=== PATIENT | male | born 1940 | race Caucasian/White ===

== ENCOUNTER 2017-01-15 19:02 | Inpatient (IN) | payer MEDICARE, OTHER ==
--- NOTE | ~2017-01-15 | CN ---
Consultation Report [address] [place]. [address] NAME: SORIN SUMNER : 42 STATUS : ADM IN [facility]#: [id number] AGE: 76 ADM/REG DATE : 01/16/17 MR#: [id number] REPORT SERV DATE: 01/17/17 DICTATED BY: KARY PIERCE III DATE: 01/16/17 REPORT STATUS : Draft TRANSCRIBED BY: MODL DATE: 01/16/17 CONSULTATION REPORT DATE OF CONSULTATION: 01/16/2017 REASON FOR CONSULT: 1. Acute abdominal pain. 2. Biliary pancreatitis. 3. Recommendation regarding surgical management. HISTORY OF PRESENT ILLNESS: I am asked to see this 76-year-old male in the hospital today for the above reasons. The patient complains of severe epigastric abdominal pain. He states this began about one week ago. He describes pain which lasted for about one week. The pain is primarily in the epigastric area. The pain became progressively worse. The patient presented to the emergency room and was found to have evidence for biliary pancreatitis. Today, the patient states that the pain has essentially resolved. He is anxious to go home. The patient has no prior history of similar symptoms. The patient states that the pain was aggravated by food. He had some nausea associated with this pain. The patient presented to the emergency room and was found to have evidence for pancreatitis with gallstones. The patient states his pain is now relieved and he does not wish to have any surgical intervention. PAST MEDICAL HISTORY: 1. Hypertension. 2. Coronary artery disease. 3. History of coronary artery bypass graft. 4. History of diastolic heart failure. 5. History of chronic atrial fibrillation, requiring Xarelto. 6. Hyperlipidemia. 7. Obesity. 8. History of tobacco abuse. 9. History of diabetes mellitus. SOCIAL HISTORY: The patient has a history of chronic tobacco abuse, for about 60 pack years. The patient is a purcell. He denies any history of alcohol use. ALLERGIES: NONE. MEDICATIONS: Xarelto, aspirin, Glucophage, Neurontin, Inderal, Crestor, Antivert, Ativan, Pepcid, Ultram, ProAir, Prinivil, Amaryl, hydrochlorothiazide, Victoza, Tresiba, and Consultation Report [address] [place]. [address] NAME: SORIN SUMNER : 42 STATUS : ADM IN PAT#: [id number] AGE: 76 ADM/REG DATE : 01/16/17 MR#: [id number] REPORT SERV DATE: 01/17/17 DICTATED BY: KARY PIERCE III DATE: 01/16/17 REPORT STATUS : Draft TRANSCRIBED BY: MODSimon DATE: 01/16/17 aspirin. REVIEW OF SYSTEMS: The patient's 14-point review of systems is otherwise unremarkable. FAMILY HISTORY: Unremarkable. PHYSICAL EXAMINATION: GENERAL: This is a large obese male, in no acute distress. He is alert and oriented x3. VITAL SIGNS: Blood pressure 140/68, temperature 97.8, and pulse 65. HEENT: Unremarkable. Cranial nerves II through XII are normal. LUNGS: Clear. CARDIAC: Normal. ABDOMEN: His abdomen is obese, but soft and nontender. EXTREMITIES: Normal. LABORATORY DATA: CT scan of the abdomen and pelvis, which I reviewed which was performed on admission showed inflammatory changes around the pancreas consistent with pancreatitis. There is noted to be a small fat containing umbilical hernia. There was noted to be gallstones in the gallbladder with no evidence for cholecystitis. Electrolytes were normal. Glucose on admission was elevated at 215. Lipase on admission was 1323, has decreased to 550 today. White blood cell count 15 today. Hematocrit is 40. ASSESSMENT: 1. This is a 76-year-old male with acute biliary pancreatitis, which is resolving. 2. Cholelithiasis and probable symptomatic cholelithiasis and chronic cholecystitis. 3. Probable chronic obstructive pulmonary disease secondary to tobacco abuse. 4. Tobacco abuse. 5. Coronary artery disease. 6. History of coronary artery bypass graft. 7. Hyperlipidemia. 8. Diabetes mellitus. 9. Hypertension. 10.Atrial fibrillation, requiring Xarelto. PLAN: Discussed this with the patient. The patient has biliary pancreatitis, which is improving with medical management. I have explained to the patient that I would strongly recommend laparoscopic cholecystectomy, possible laparotomy, on this admission. Surgery would require his Xarelto to be held two days prior to surgery, and we could therefore schedule the surgery for Saturday of this week for him. The patient refused surgery. I have explained to the patient that without surgery he will likely have recurrent episodes of biliary pancreatitis. He also has a risk for complications including cholecystitis, or choledocholithiasis with obstructive jaundice or cholangitis, any of which could be life- threatening. For this reason, I explained the patient that standard of care is for Consultation Report [address] [place]. [address] NAME: SORIN SUMNER : 42 STATUS : ADM IN [facility]#: [id number] AGE: 76 ADM/REG DATE : 01/16/17 MR#: [id number] REPORT SERV DATE: 01/17/17 DICTATED BY: KARY PIERCE III DATE: 01/16/17 REPORT STATUS : Draft TRANSCRIBED BY: HEDY DATE: 01/16/17 cholecystectomy to be performed on this admission. The patient is adamant that he does not wish to have surgery at this time. I have explained to him again the complications which could occur without surgery, including recurrent episodes of biliary pancreatitis, cholecystitis, obstructive jaundice with cholangitis, any of which could be life- threatening. The patient understands my recommendations, but declines at this time. He indicates that he wishes to go home and will consider this. I have told the patient that if he changes his mind and wishes to have surgery, he may call and we will schedule it to be done for him. I have explained to him that his Xarelto would again need to be held for at least two days prior to surgery. Regarding the surgery, the procedure, risks, benefits, and alternatives were explained to the patient. His questions were answered. He understands, but indicates that he does not wish to have surgery at this time or on this admission. Again, the patient is asked to call should he wished to schedule surgery electively. Otherwise, I will see him back as needed. PEMA/HEDY Kary Pierce III, M.D. / [id number] CC: Sorin Marin Jr, MD Raymond Bedgood, M.D.
--- NOTE | ~2017-01-15 | HP ---
History And Physical [address] [facility] [place]. [address] NAME: SORIN SUMNER : 42 STATUS : ADM Smooth PAT#: [id number] AGE: 76 ADM/REG DATE : 01/15/17 MR#: [id number] REPORT SERV DATE: 01/15/17 DICTATED BY: AVTAR FREIRE DATE: 01/15/17 REPORT STATUS : Draft TRANSCRIBED BY: MODL DATE: 01/15/17 DATE OF ADMISSION: 01/15/2017 CHIEF COMPLAINT: Abdominal pain. HISTORY OF PRESENT ILLNESS: This is a 76-year-old male with history of diabetes mellitus, hypertension, coronary artery disease and chronic atrial fibrillation, on Xarelto, who presents to the emergency room at [facility] with severe abdominal pain. History is obtained from the patient, his , who is at bedside, and reviewing data available on the DecisionView system. According to available data, Mr. Sumner developed this abdominal pain on Saturday of last week and since then, the pain has been quite constant. He describes the pain more as in the epigastric area and points his finger down the middle all the way to the lower abdomen as well. He says the pain was mostly in the epigastric area, and his agrees with that. He says the pain is severely aggravated by any food whether it is liquid or solid, whether it is starch or fatty meals. He says any food will exaggerate the pain. He has had several remedies which he has tried [id number]-ivzybvs and given by his primary care physician as well. He was also treated about a week to 10 days ago for an acute bronchitis with antibiotics and steroids by his primary care physician in [place], [place]. However, none of this had helped him, and he finally decided to come to the emergency room to be evaluated. In the emergency room, initial workup revealed he had a markedly elevated lipase level and CT scan of his abdomen and pelvis showed acute pancreatitis with cholelithiasis without cholecystitis. Hospitalist Service is asked to admit him for further evaluation and treatment. At the time of my evaluation, he continued to have abdominal pain although he was slightly relieved due to administration of intravenous Dilaudid that he got in the emergency room. He was, however, awake and able to give a reliable history. He denied any recent chest pain, palpitations, or orthopnea. He had no cough productive of any sputum. Denied any hemoptysis, night sweats, or weight loss. He had no recent falls, loss of consciousness. Denied any recent fevers, chills. He did have nausea without vomiting. No diarrhea. He states he was constipated recently and had to resort to several different dhds-grh-umjoqwb remedies including Mag citrate last night, as he thought the pain was due to constipation. He has had no recent history of hematemesis, hematochezia, or hematuria. No dysuria. No other history of recent travel or exposures other than those mentioned above. PAST MEDICAL HISTORY: Significant for history of diabetes mellitus, essential hypertension, coronary artery disease with CABG, diastolic heart failure with preserved left ventricular function, chronic atrial fibrillation on Xarelto, hyperlipidemia, and diabetic neuropathy. SOCIAL HISTORY: He has about 60-pack year history of smoking and continues to do so although he is down to about three to four cigarettes daily now. He denies alcohol use or recreational drug use. 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 History And Physical [address] [address] NAME: SORIN SUMNER : 42 STATUS : ADM Smooth PAT#: [id number] AGE: 76 ADM/REG DATE : 01/15/17 MR#: [id number] REPORT SERV DATE: 01/15/17 DICTATED BY: AVTAR FREIRE DATE: 01/15/17 REPORT STATUS : Draft TRANSCRIBED BY: HEDY DATE: 01/15/17 FAMILY HISTORY: Noncontributory. MEDICATIONS: At home were reviewed by me in the chart today and reordered by me. REVIEW OF SYSTEMS: As in history of present illness. All other systems reviewed in detail are quite unremarkable. PHYSICAL EXAMINATION: GENERAL: This is a pleasant 76-year old, not in any acute distress. HEENT: His head is atraumatic, normocephalic. He is alert, awake, oriented to time, place, and person. Pupils are equal, reacting to light and accommodating. External ocular muscles are intact. Membranes are moist and pink. Sclerae are nonicteric. NECK: Supple with no jugular venous distention, lymphadenopathy, or thyromegaly. LUNGS: Clear to auscultation with no wheezes, rubs, or crackles. HEART: Heart sounds were regular with no murmurs, rubs, or gallops. ABDOMEN: Not distended. There is tenderness to palpation in the epigastric region without any guarding, rigidity, or rebound tenderness. There is no organomegaly palpable. Bowel sounds are present. EXTREMITIES: Showed no cyanosis, clubbing, or edema. NEUROLOGIC: Grossly intact. No focal sensory or motor deficits. Higher functions appeared intact. VITAL SIGNS: His vital signs today showed a temperature of 97.7, pulse 89, respirations 20 a minute, blood pressure was 159/76, oxygen saturations were 96% breathing 2 L of oxygen via nasal cannula. LABORATORY DATA: Reviewed on the DecisionView system showed sodium of 138, potassium was 4.1, chloride 99, CO2 of 33, BUN was 29 with a creatinine of 1.3. Glucose was 215 today. His alkaline phosphatase, ALT AST were within normal limits. Lipase was elevated at 1323. His lactate was 1.3, troponin was 0.02. [place] [address], otherwise normal hemoglobin, hematocrit, and platelet count. His protime was 15.6 with an INR 1.3 today. Urinalysis was grossly unremarkable today. Films of the chest x-ray were reviewed by me on the PACS today and interpreted by me. There is normal bony architecture with prior sternotomy. There is a left-sided pacemaker as well. The lung mondragon showed no pulmonary infiltrates or pleural effusions. CT of the abdomen and pelvis films were reviewed by me on the PACS today and interpreted by me. Official radiology comments were also reviewed. According to Radiology, there is acute pancreatitis, there is cholelithiasis without cholecystitis, see the report for further details. A 12-lead EKG done in the emergency room was reviewed and interpreted by me. There is atrial fibrillation with left bundle-branch block at a rate of 72 per minute. IMPRESSION: 1. Abdominal pain. History And Physical [address] [address] NAME: SORIN SUMNER : 42 STATUS : ADM Smooth PAT#: [id number] AGE: 76 ADM/REG DATE : 01/15/17 MR#: [id number] REPORT SERV DATE: 01/15/17 DICTATED BY: AVTAR FREIRE DATE: 01/15/17 REPORT STATUS : Draft TRANSCRIBED BY: MODSimon DATE: 01/15/17 2. Acute pancreatitis. 3. Diabetes mellitus with hyperglycemia. 4. Acute kidney injury. 5. Essential hypertension, uncontrolled. 6. Diastolic congestive heart failure with preserved left ventricular function. 7. Chronic atrial fibrillation, on Xarelto. 8. Hyperlipidemia. 9. Diabetic neuropathy. PLAN: We will admit Mr. Sumner to medical telemetry floor for a 24-hour observation period. We will start him on IV fluids for aggressive volume resuscitation, establish pain control with intravenous Dilaudid in small doses as needed along with oral pain medications. We will keep him n.p.o. for tonight and have Gastroenterology consult on him and offer recommendations. Meanwhile, we will start him on blood sugar control with NovoLog given subcutaneously per sliding scale and get an A1c as well. I will also provide him with intravenous Zofran and Phenergan for any symptoms of nausea that he might have. We will start him on NovoLog insulin for blood sugar control, restart rest of his other medications as well. He is on Xarelto which we will continue and monitor his atrial fibrillation. Discussed above plans with the patient and his . Questions were answered. They are agreeable to the above recommendations. Hospitalist Service will be following him during his stay here. /HEDY Avtar Freire M.D. / [id number] CC: Sorin Marin Jr, MD
--- NOTE | ~2017-01-15 | DS ---
Discharge Summary [address] [place]. [address] NAME: SORIN SUMNER : 42 STATUS : DIS IN PAT#: [id number] AGE: 76 ADM/REG DATE : 01/16/17 MR#: [id number] REPORT SERV DATE: 01/18/17 DICTATED BY: JR. MARIN WILLIAM NEETU DATE: 01/17/17 REPORT STATUS : Draft TRANSCRIBED BY: MODL DATE: 01/17/17 ADMISSION DATE: 01/16/2017 DISCHARGE DATE: 01/17/2017 DISCHARGE DIAGNOSES: Include: 1. Acute pancreatitis, likely biliary in nature. 2. Cholelithiasis. 3. Abdominal pain. 4. 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 5. Acute kidney injury, which is resolved. 6. Uncontrolled essential hypertension. 7. Diastolic heart failure with preserved left ventricular function, which is chronic. 8. Chronic atrial fibrillation, on Xarelto. 9. Hyperlipidemia. OPERATIONS/PROCEDURES AND TREATMENTS: Include: 1. PA and lateral chest x-ray done 01/15/2017, which showed stable mild cardiomegaly with prior bypass and AICD device in good position. 2. CT of the abdomen and pelvis done 01/15/2017, which showed infiltrate in fat planes of the pancreatic head suggesting focal acute pancreatitis. There was cholelithiasis without cholecystitis. There was a 1.5 cm diameter right adrenal adenoma. There was diffuse bilateral renal cortical thinning. Normal appendix, small fat containing umbilical hernia. Prostate was enlarged. CONSULTING PHYSICIAN: Include: 1. Dr. Kitchen. 2. Dr. Pierce. DISCHARGE MEDICATIONS: Include: 1. Aspirin 81 mg orally daily. 2. Vitamin B12 1000 mcg orally daily. 3. Coenzyme Q 100 mg orally at bedtime. 4. Famotidine 20 mg orally twice a day. 5. Neurontin 1200 mg orally twice a day. 6. Tresiba FlexTouch insulin pen 21-35 units at bedtime. 7. Meclizine 12.5 mg orally daily. 8. Propranolol 40 mg orally daily. 9. Rivaroxaban 20 mg orally daily. 10.Aspercreme as needed. 11.Anoro Ellipta 62.5/25, one puff daily. 12.Metformin 1000 mg orally twice a day. 13.Crestor 10 mg orally daily. 14.Ativan 1 mg at bedtime as needed. 15.Tramadol 50 mg twice a day as needed. 16.Albuterol high-flow aerosol as needed. 17.Lisinopril 20 mg orally twice a day. Discharge Summary [facility] [address] [place]. [address] NAME: SORIN SUMNER : 42 STATUS : DIS IN PAT#: [id number] AGE: 76 ADM/REG DATE : 01/16/17 MR#: [id number] REPORT SERV DATE: 01/18/17 DICTATED BY: JR. MARIN WILLIAM JOHN DATE: 01/17/17 REPORT STATUS : Draft TRANSCRIBED BY: HEDY DATE: 01/17/17 18.Glimepiride 2 mg orally daily. 19.Hydrochlorothiazide 25 mg orally daily. 20.Victoza Pen 1.8 mg subcutaneously with supper. 21.Miracle foot cream as needed. HOSPITAL COURSE: The patient is a 76-year-old male with a complicated history, who presented to [facility] 01/15/2017 with complaint of abdominal pain. The patient developed abdominal pain on Saturday the week prior. The pain had been constant and worse in the epigastric area with radiation to the lower abdomen, any food aggravated the pain. He tried several fefl-tnc-pzatdjf red regimen, was tree about 7-10 days ago for acute bronchitis with his primary care provider and eventually came to the emergency room without relief. On initial exam, his temperature is 97.7, heart rate 89, respiratory rate 20, blood pressure 159/75. Exam showed nondistended abdomen with tenderness to palpation in the epigastrium without guarding, rebound, or rigidity. Bowel sounds were present. Initial laboratory showed a lipase of 1323 with a mildly elevated white count of 11.2. CT of the abdomen and pelvis as detailed above. For complete details of the admission history, physical, and presenting data, please see Dr. Jin's dictated history and physical. The patient was admitted to the Clinical Decision Unit. He was placed on bowel rest, IV fluids, and analgesia with improvement in the pain. He was seen in consultation by Dr. Phillip Kitchen of Gastroenterology, who recommended surgical consult given the presence of gallstones and likelihood of biliary pancreatitis. The patient was seen in consultation by General Surgery, who strongly advised for a cholecystectomy during this hospital stay. The patient is on Xarelto and have needed to wait two days prior to surgery, however, the patient declined surgery. He is very adamant that he has things to do and will call Dr. Pierce as an outpatient to set this up. The patient was tolerating a diet and was felt to be stable for discharge on 01/17/2017. He will follow up with his primary care provider, Hayden Scott. The patient also agrees to call Dr. Pierce to set up a cholecystectomy as an outpatient. The remainder of the patient's health problems were stable. He did have some acute kidney injury, which resolved with IV fluids. Otherwise, his health problems were stable and were not addressed during this hospitalization. DISCHARGE DIET: Low-fat diet. ACTIVITY: As tolerated. Followup will be with primary care provider in one to two weeks and Dr. Pierce. The patient is instructed to call Dr. Pierce. For discharge exam and laboratory, please see daily progress note. This discharge took 38 minutes for patient encounter, coordination of care, and documentation. WKATIE/HEDY Sorin Marin Jr, MD Discharge Summary [address] [address] NAME: SORIN SUMNER : 42 STATUS : DIS IN PAT#: [id number] AGE: 76 ADM/REG DATE : 01/16/17 MR#: [id number] REPORT SERV DATE: 01/18/17 DICTATED BY: JR. MARIN WILLIAM JOHN DATE: 01/17/17 REPORT STATUS : Draft TRANSCRIBED BY: HEDY DATE: 01/17/17 / [id number] CC: Sorin Marin Jr, MD Raymond Bedgood, M.D.
--- NOTE | ~2017-01-15 | CN ---
Consultation Report [facility] [address] . [address] NAME: SORIN SUMNER : 42 STATUS : ADM IN PAT#: [id number] AGE: 76 ADM/REG DATE : 01/16/17 MR#: [id number] REPORT SERV DATE: 01/16/17 DICTATED BY: KARY SADLER DATE: 01/16/17 REPORT STATUS : Draft TRANSCRIBED BY: MODSimon DATE: 01/16/17 CONSULTATION DATE OF CONSULTATION: 01/16/2017 HISTORY OF PRESENT ILLNESS: The patient is a 76-year-old gentleman, who presents to the hospital with abdominal pains mainly in the midepigastrium across the upper abdomen associated with very little nausea, but no vomiting. He does have episodes of heartburn and indigestion, but they are fairly rare. He denies any dysphagia or odynophagia. He denies any hematemesis or coffee-grounds emesis. He was constipated and took some magnesium citrate and that gave him a large bowel movement, but he continued to have severe abdominal pains and came to the emergency room. Again, he denies any trouble with melena or bright red blood per the rectum and says that this was not started on any certain foods. He saw his primary care doctor and was given the mag citrate, which did give him the bowel movement, but did not help the pains. PAST MEDICAL HISTORY: Pertinent for diabetes, hypertension, coronary artery disease, chronic atrial fibrillation on Xarelto, he also has a pacemaker, he has had what looks like coronary bypass surgery, he does have essential hypertension, high lipids and diabetic neuropathy. MEDICATIONS: His medicines at home are albuterol metered-dose inhaler, aspirin, Coenzyme Q10, vitamin B12, Pepcid, gabapentin, Amaryl, hydrochlorothiazide, insulin, Victoza, lisinopril, Ativan, Antivert, metformin, propranolol, Xarelto, Crestor, Ultram, Aspercreme, Anoro Ellipta metered-dose inhaler, and a foot cream. ALLERGIES: HE HAS NO KNOWN MEDICAL ALLERGIES. SOCIAL HISTORY: Smokes maybe a quarter pack of cigarettes a day, but does chew a pack Red Man every day. Does not dip snuff. Does not drink alcohol. FAMILY HISTORY: Pertinent for a sister with colon polyps. No family history of gallbladder disease. REVIEW OF SYSTEMS: Otherwise, unremarkable. PHYSICAL EXAMINATION: GENERAL: He is a well-developed, well-nourished gentleman, in no acute distress. VITAL SIGNS: His temperature is 98.1, pulse is 70, respirations 16, blood pressure is 125/72. HEENT: Unremarkable. LUNGS: Clear. HEART: Irregularly regular. ABDOMEN: Showed normoactive bowel sounds. Soft and nontender. Consultation Report [address] . [address] NAME: SORIN SUMNER : 42 STATUS : ADM IN [facility]#: [id number] AGE: 76 ADM/REG DATE : 01/16/17 MR#: [id number] REPORT SERV DATE: 01/16/17 DICTATED BY: KARY SADLER DATE: 01/16/17 REPORT STATUS : Draft TRANSCRIBED BY: HEDY DATE: 01/16/17 LABORATORY DATA: On admission showed a sodium of 138, potassium 4.1, chloride 99, CO2 of 33, BUN 29, creatinine 1.30, glucose 215, calcium 9.0. Magnesium is 2.7. Troponin less than 0.02. Lipase was 1323. His total bilirubin was 0.4, alkaline phosphatase 57, ALT 20, AST 35, total protein 7.9 with an albumin of 3.4. His CBC on admission showed a white count of 11.2, hemoglobin 14.1, hematocrit 42.7, RDW is 16.1 with a platelet count of 304,000. PTT is 35.4, pro time 15.6 with an INR of 1.3. Today, his white count was 15.1, hemoglobin 13.1, hematocrit 40.6, RDW 16.3 with a platelet count of 285,000. His lipase today was down to 550. He did have a CT scan, which showed gallstones, but no cholecystitis. He had acute focal pancreatitis, a small 1.5 cm right adrenal adenoma, diffuse bilateral renal cortical thinning, normal appendix, a fat containing umbilical hernia, and the prostate was enlarged. IMPRESSION: This is a 76-year-old gentleman, who has pancreatitis more than likely biliary in nature as he does have gallstones. He may have passed a small gallstone large enough to cause a problem with the pancreas, but not large enough to block the entire bile duct giving him elevation of liver enzymes. At this time, would keep him on a low-fat diet. Would also get a surgical consult for an opinion whether or not he needs a cholecystectomy before goes home and pending above. He may be able to go home tomorrow or wants to do surgery before he goes home and it will after surgery. ALEXSANDER/HEDY Kary Sadler M.D. / [id number] CC: Sorin Marin Jr, MD Bedgood, Raymond
[2017-01-15 15:52] LABS: BASOPHILS 0.6 %; BASOPHILS ABSOLUTE 0.07 10/3/uL (0.0-0.16); EOSINOPHILS ABSOLUTE 0.34 10/3/uL (0.0-0.53); HEMATOCRIT 42.7 % (40.0-51.0); HEMOGLOBIN 14.1 g/dL (13.6-17.8); IMMATURE GRANULOCYTES 0.3 %; IMMATURE GRANULOCYTES ABSOLUTE 0.03 10/3/uL (0.0-0.11); LYMPHOCYTES 26.2 %; LYMPHOCYTES ABSOLUTE 2.94 10/3/uL (0.67-4.30); MEAN PLATELET VOLUME 10.6 fL (9.2-13.0); MONOCYTES 11.6 %; NEUTROPHILS 58.3 %; NEUTROPHILS ABSOLUTE 6.54 10/3/uL (2.02-8.40); RBC DISTRIBUTION WIDTH 16.1 % (12.0-16.0); RED CELL COUNT 4.87 10/6/uL (4.7-6.1); WHITE BLOOD CELLS 11.2 10/3/uL (4.5-10.5)
[2017-01-15 15:54] LABS: MANUAL DIFF NO %; MEAN CORPUSCULAR VOLUME 87.7 fL (80-100); PLATELET COUNT 304 10/3/uL (150-400)
[2017-01-15 16:01] LABS: INTERNATIONAL NORMAL RATI 1.3 UNITS (-); PROTIME (NOT ORD) 15.6 SEC (12.0-14.5)
[2017-01-15 16:02] LABS: PARTIAL THROMBO TIME 35.4 SEC (22.5-37.2)
[2017-01-15 16:11] LABS: CHEST PAIN PROFILE TAT 0 Hrs 25 Mins; CHLORIDE, SERUM 99 MMOL/L (96-112); CO2 (CARBON DIOXIDE) 33 MMOL/L (24-34); GFR AFRICAN AMERICAN 62 ML/MIN (>=60); GFR NON AFRICAN AMERICAN 53 ML/MIN (>=60); GLUCOSE, SERUM 215 MG/DL (60-99); POTASSIUM, SERUM 4.1 MMOL/L (3.5-5.3); SODIUM, SERUM 138 MMOL/L (135-148); TROPONIN I <0.02 NG/ML (<0.05)
[2017-01-15 16:12] LABS: BUN (BLOOD UREA NITROGEN) 29 MG/DL (6-23)
[2017-01-15 18:22] LABS: WBC (NOT ORDERED) (RFLEX) 0 (0-5)
[2017-01-15 18:46] LABS: ALKALINE PHOSPHATASE 57 U/L (45-117); SGPT(ALT) 20 U/L (5-65); TOTAL BILIRUBIN 0.4 MG/DL (0-1.2); TOTAL PROTEIN 7.9 G/DL (6.0-8.5)
[2017-01-15 19:00] LABS: ALBUMIN 3.4 G/DL (3.5-5.0); SGOT(AST) 35 U/L (5-40)
[~2017-01-15 19:02] MED LIST: ACTOS45 PO; AMARYL1 MG PO; AMARYL2 PO; ASA5GR PO; ASAB PO; ATEN25 PO; ATV1 PO; CARDU4 PO; CO Q-1050 MG PO; CRESTOR10 PO; CYANO1000T PO; GLUCOPHAGE1000 MG PO; HALF81 PO; HCTZ25B PO; HYDROCHLOROT25 MG PO; ILA60 PO; INDE80LA PO; LEXAPRO10 PO; LIPITOR80 MG PO; LISINOPRIL40 MG PO; MCZ125 PO; MCZ25 PO; METAMUCIL CAN7 OZ PO; NEUR100 PO; NORV5 PO; PLAVIX PO; PR25 PO; PRILOSEC OTC20 MG PO; PRIN20 PO; TUMSROLL PO; VICTOZA18 MG/3 ML SC; XARELTO20 MG PO; ZOCOR40 PO
[2017-01-15 19:13] LABS: ASCORBIC ACID (UR NOT ORDER) NEG (NEG); BILIRUBIN, URINE NEGATIVE (NEG); KETONE, URINE NEGATIVE (NEG); LEUKOCYTE ESTERASE(NOT OR NEG (NEG); NITRITE (URINE) NEG (NEG)
[2017-01-15 19:14] LABS: ER URINALYSIS TAT 0 Hrs 53 Mins
[2017-01-15] MEDS ORDERED: XARELTO20 MG PO (19:52)
[2017-01-15] MEDS ORDERED: ASABAYER PO (19:52)
[2017-01-15] MEDS ORDERED: NEUR600 PO (19:53)
[2017-01-15] MEDS ORDERED: GLUCOPHAGE1000 MG PO (19:53)
[2017-01-15] MEDS ORDERED: CRESTOR10 PO (19:54)
[2017-01-15] MEDS ORDERED: INDE80LA PO (19:54)
[2017-01-15] MEDS ORDERED: CO Q-10100 MG PO (19:54)
[2017-01-15] MEDS ORDERED: MCZ125 PO (19:55)
[2017-01-15] MEDS ORDERED: CYANO1000T PO (19:56)
[2017-01-15] MEDS ORDERED: PEP20 PO (19:56)
[2017-01-15] MEDS ORDERED: ULTRAM50 PO (19:57)
[2017-01-15] MEDS ORDERED: ATV1 PO (19:57)
[2017-01-15] MEDS ORDERED: PRIN20 PO (19:58)
[2017-01-15] MEDS ORDERED: PROAIR HFA INH (19:58)
[2017-01-15] MEDS ORDERED: AMARYL2 PO (19:58)
[2017-01-15] MEDS ORDERED: HYDROCHLOROT25 MG PO (19:59)
[2017-01-15] MEDS ORDERED: VICTOZA18 MG/3 ML SC (19:59)
[2017-01-15] MEDS ORDERED: TRESIBA FL100 UNIT/1 SC (20:00)
[2017-01-15] MEDS ORDERED: ANOROELLIPTA INH (20:05)
[2017-01-15] MEDS ORDERED: ASAB PO (20:06)
[2017-01-15] MEDS ORDERED: [UNRECOGNIZED DRUG - OTHER] TOP (20:12)
[2017-01-15] MEDS ORDERED: ASPERCREME TOP (20:13)
[2017-01-15 20:44] LABS: DIRECT BILIRUBIN < 0.1 MG/DL (0.0-0.4); INDIRECT BILIRUBIN(NOT ORDER) 0.3 MG/DL (0.1-0.9)
[2017-01-16 05:11] LABS: BASOPHILS 0.3 %; BASOPHILS ABSOLUTE 0.05 10/3/uL (0.0-0.16); EOSINOPHILS 2.3 %; EOSINOPHILS ABSOLUTE 0.35 10/3/uL (0.0-0.53); HEMATOCRIT 40.6 % (40.0-51.0); HEMOGLOBIN 13.1 g/dL (13.6-17.8); IMMATURE GRANULOCYTES 0.3 %; IMMATURE GRANULOCYTES ABSOLUTE 0.04 10/3/uL (0.0-0.11); LYMPHOCYTES 12.8 %; LYMPHOCYTES ABSOLUTE 1.93 10/3/uL (0.67-4.30); MEAN CORPUS HGB CONC 32.3 g/dL (32.0-36.0); MEAN CORPUSCULAR HEMOGLOB 28.7 pg (26.0-34.0); MEAN PLATELET VOLUME 10.6 fL (9.2-13.0); MONOCYTES 10.8 %; MONOCYTES ABSOLUTE 1.63 10/3/uL (0.21-1.20); NEUTROPHILS 73.5 %; NEUTROPHILS ABSOLUTE 11.09 10/3/uL (2.02-8.40); PLATELET COUNT 285 10/3/uL (150-400); RBC DISTRIBUTION WIDTH 16.3 % (12.0-16.0); RED CELL COUNT 4.56 10/6/uL (4.7-6.1); WHITE BLOOD CELLS 15.1 10/3/uL (4.5-10.5)
[2017-01-16 05:13] LABS: MANUAL DIFF NO %
[2017-01-16 05:24] LABS: BUN (BLOOD UREA NITROGEN) 24 MG/DL (6-23); CALCIUM, SERUM 7.9 MG/DL (8.5-10.4); CHLORIDE, SERUM 102 MMOL/L (96-112); CO2 (CARBON DIOXIDE) 31 MMOL/L (24-34); CREATININE 0.97 MG/DL (0.70-1.30); GFR AFRICAN AMERICAN 88 ML/MIN (>=60); GFR NON AFRICAN AMERICAN 76 ML/MIN (>=60); GLUCOSE, SERUM 152 MG/DL (60-99); PHOSPHORUS, SERUM 2.7 MG/DL (2.5-4.5); SODIUM, SERUM 140 MMOL/L (135-148)
[2017-01-17 06:15] LABS: CHLORIDE, SERUM 109 MMOL/L (96-112); CO2 (CARBON DIOXIDE) 28 MMOL/L (24-34); CREATININE 0.78 MG/DL (0.70-1.30); GFR AFRICAN AMERICAN 102 ML/MIN (>=60); GFR NON AFRICAN AMERICAN 88 ML/MIN (>=60); GLUCOSE, SERUM 144 MG/DL (60-99); POTASSIUM, SERUM 3.9 MMOL/L (3.5-5.3); SODIUM, SERUM 143 MMOL/L (135-148); TRIGLYCERIDE 90 MG/DL (< 150)
[2017-01-17 06:16] LABS: BUN (BLOOD UREA NITROGEN) 11 MG/DL (6-23)
[2017-01-17 06:17] LABS: CALCIUM, SERUM 8.2 MG/DL (8.5-10.4)
== END 2017-01-17 11:31 | disposition home or self-care (01) | DRG 439 ==
LOC: ER 19:02 → CDU1 20:11 → CDU2 20:32
PROVIDERS: Emergency Medicine; Internal Medicine; Internal Medicine Pulmonary Disease
DX: K85.10 Biliary acute pancreatitis without necrosis or infection (principal); I50.32 Chronic diastolic (congestive) heart failure; N17.9 Acute kidney failure, unspecified; E11.40 Type 2 diabetes mellitus with diabetic neuropathy, unspecified; I11.0 Hypertensive heart disease with heart failure; E11.65 Type 2 diabetes mellitus with hyperglycemia; F17.210 Nicotine dependence, cigarettes, uncomplicated; I48.2 Chronic atrial fibrillation; E78.5 Hyperlipidemia, unspecified; K80.20 Calculus of gallbladder without cholecystitis without obstruction; I25.10 Atherosclerotic heart disease of native coronary artery without angina pectoris; Z95.1 Presence of aortocoronary bypass graft; Z79.01 Long term (current) use of anticoagulants
CPT/HCPCS: 71020; 74176; 80048; 80076; 81001; 82150; 82962; 83036; 83605; 83690; 83735; 84100; 84478; 84484; 85025; 85610; 85730; 93005; 94640; 96374; 96375; 99285; A9270-GY; J1170; J2405